=== PATIENT | male | born 1990 | race Caucasian/White ===

== ENCOUNTER 2017-07-03 05:17 | Inpatient (IN) | payer MEDICAID, OTHER ==
[2017-07-03] MEDS ORDERED: MAG HYDROX/AL HYDROX/SIMETH 30 ML CUP PO PRN (06:23)
[2017-07-03] MEDS ORDERED: ZIPRASIDONE 20 MG VIAL IM PRN (06:23)
[2017-07-03] MEDS ORDERED: LORazepam 1 MG TAB PO PRN (06:23)
[2017-07-03] MEDS ORDERED: ACETAMINOPHEN TAB 325 MG TAB PO PRN (06:23)
[2017-07-03] MEDS ORDERED: MAGNESIUM HYDROXIDE 2,400 MG/10 ML CUP PO PRN (06:23)
[2017-07-03] MEDS: NICOTINE 21MG/24HR PATCH TRANSDERM SCH (08:59)
--- NOTE | 2017-07-03 09:03 | P.MDCNMH ---
History of Present Illness H&P Date: 07/03/17 Chief Complaint: Suicidal ideation 27-year-old male who was transferred from [facility] for evaluation and treatment of suicidal ideation. He told the ER physician over at [place] that he could not deal with his life anymore. He denied having any homicidal ideation currently but his petition clearly states that he did have ''evil'' thoughts about hurting others. No visual or auditory hallucinations. According to the ER records he is tired from seeing people succeed around him and he is unable to succeed or find a job. Patient feels depressed and reported a history of being bipolar. He denied having any recent illness, no pain, no shortness of breath, no fevers or chills. He was quite irritable at the time of the interview and it was not easy to get much information from him. Review of Systems 12 point review of system was performed, negative except for HPI Past Medical History Past Medical History: No Reported History Past Surgical History: Tonsillectomy Past Psychological History: Bipolar, Depression Smoking Status: Current every day smoker Past Alcohol Use History: None Reported (Quit drinking about a month ago, he used to drink 6-8 beers a day before that) Past Drug Use History: None Reported Medications and Allergies Home Medications Medication Instructions Recorded Confirmed Type No Known Home Medications [No 07/03/17 07/03/17 History Known Home Medications] Allergies Allergy/AdvReac Type Severity Reaction Status Date / Time No Known Allergies Allergy Verified 07/03/17 06:23 Physical Exam Vitals: Vital Signs Temp Pulse Resp BP 07/03/17 05:55 97.4 F L 88 16 142/85 Intake and Output 07/02/17 07/03/17 07/03/17 22:59 06:59 14:59 Other: Weight 80.876 kg Constitutional: No acute distress, conversant, pleasant Eyes:Anicteric sclerae, moist conjunctiva, no lid-lag, PERRLA, ENMT: Oropharynx clear, no erythema, exudates Neck: Supple, FROM, no masses, or JVD, No carotid bruits, No thyromegaly Lungs: Clear to auscultation, Clear to percussion, Normal respiratory effort, no accessory muscle use Cardiovascular: Heart regular in rate and rhythm, No murmurs, gallops, or rubs, No peripheral edema Abdominal: Soft, Nontender, no guarding, rebound or rigidity, Normoactive bowel sounds, No hepatomegaly, No splenomegaly, No palpable mass Skin: Normal temperature, tone, texture, turgor, no induration, No subcutaneous nodules, No rash, lesions, No ulcers Extremities: No digital cyanosis, No clubbing, Pedal pulses intact and symmetrical, Radial pulses intact and symmetrical, No calf tenderness Psychiatric: Alert and oriented to person, place and time Neuro: Muscles Strength 5/5 in all 4 extremities, Sensation to light touch grossly present throughout, Cranial nerves II-XII grossly intact, no focal sensory deficits Cranial Nerve Examination - Cranial Nerves Cranial Nerve II- Optic: Intact Cranial Nerve III- Oculomotor: Intact Cranial Nerve IV- Trochlear: Intact Cranial Nerve V- Trigeminal: Intact Cranial Nerve - Abducens: Intact Cranial Nerve VII- Facial: Intact Cranial Nerve VIII- Auditory: Intact Cranial Nerve IX- Glossopharyngeal: Intact Cranial Nerve X- Vagus: Intact Cranial Nerve XI- Accessory: Intact Cranial Nerve XII- Hypoglossal: Intact Assessment and Plan Plan: #1 Suicidal ideation: Management per psychiatry CBC, CMP, urinalysis and urine toxicology screen from the outside hospital were all reviewed #2 Questionable hypertension: She has been hungry at times and crying at times and that could elevate the blood pressure Blood pressure was 166/108 at the outside hospital and here when he arrived to the unit it was 142/85. We'll need to recheck a blood pressure once the patient is calm No need to restart antihypertensive meds at this point until the diagnosis verified
[2017-07-03 11:08] LABS: ALT 45 U/L (21-72); AST 24 U/L (17-59); Alkaline Phosphatase 54 U/L (38-126); Anion Gap 12 mmol/L; Blood Urea Nitrogen 14 mg/dL (9-20); Calcium 9.9 mg/dL (8.4-10.2); Carbon Dioxide 28 mmol/L (22-30); Chloride 102 mmol/L (98-107); Cholesterol 149 mg/dL (<200); Glucose 113 mg/dL (74-99); HDL Cholesterol 44 mg/dL (40-60); LDL Cholesterol,Calculated 74 mg/dL (0-99); Potassium 4.3 mmol/L (3.5-5.1); Sodium 142 mmol/L (137-145); Total Bilirubin 0.4 mg/dL (0.2-1.3); Total Protein 7.6 g/dL (6.3-8.2); Triglycerides 154 mg/dL (<150)
--- NOTE | 2017-07-03 13:13 | XR ---
EXAMINATION TYPE: XR foot complete LT , 3 VIEWS DATE OF EXAM ORDERED: 07/03/2017 HISTORY: Lateral foot pain. COMPARISON: None. FINDINGS: No fracture, dislocation or other acute osseous lesion is seen. IMPRESSION: NORMAL LEFT FOOT.
[2017-07-03] MEDS: OLANZapine 5 MG TAB PO SCH ×2 (16:18→20:03)
[2017-07-03] MEDS: cloNIDine HCL 0.1 MG TAB PO SCH ×2 (16:18→20:03)
[2017-07-03 18:30] LABS: Hemoglobin A1C 5.3 % (4.0-6.0)
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
[2017-07-04 06:45] VITALS: RESP 16
[2017-07-04] MEDS: NICOTINE 21MG/24HR PATCH TRANSDERM SCH (08:37)
[2017-07-04] MEDS: cloNIDine HCL 0.1 MG TAB PO SCH ×2 (08:37→22:01)
[2017-07-04] MEDS: OLANZapine 5 MG TAB PO SCH ×2 (08:37→16:43)
[2017-07-04] MEDS: OLANZapine 2.5 MG TAB PO SCH (22:01)
--- NOTE | 2017-07-05 06:12 | PN ---
PROGRESS NOTE DATE OF SERVICE: 07/04/2017 CHIEF COMPLAINT: The patient was depressed. He was making suicide statements that "I cannot deal with life anymore." He was petitioned for involuntary hospitalization. INTERVAL HISTORY: Patient has been doing fair. He had a quiet evening last night. He said he slept a little bit better. He feels that overall he has a somewhat better outlook. He has some insight about the need to focus on withdrawal issues relating to his drinking, even though he cut down considerably over the last several months, he still has been drinking significant amount of alcohol at least on an every other day basis. He was able to talk some about discharge planning. He may be planning to move in with his girlfriend. He was willing to have her come in for a family meeting as part of treatment and discharge planning. He has not had change in his general health. He tolerates his psychotropic medications. MENTAL STATUS: Patient gave fair eye contact. Psychomotor activity was slowed. Speech was monotone. He answered questions with brief responses. His thoughts were clear. His affect was flat. His mood reserved. He was somewhat distressed. ASSESSMENT: I will continue the current diagnosis and treatment plan. I will continue psychotropic medications the same. We will continue to work on discharge planning and anticipate a family meeting tomorrow. We will aim to work on stabilization and discharge planning. BRAD / MCKINLEY: [id number] /
[2017-07-05] MEDS: NICOTINE 21MG/24HR PATCH TRANSDERM SCH (08:44)
[2017-07-05] MEDS: OLANZapine 2.5 MG TAB PO SCH (08:44)
[2017-07-05] MEDS: cloNIDine HCL 0.1 MG TAB PO SCH ×2 (08:44→21:11)
[2017-07-05] MEDS: OLANZapine 5 MG TAB PO SCH ×2 (17:05→21:12)
[2017-07-05] MEDS: NICOTINE POLACRILEX 2 MG GUM BUCCAL PRN ×2 (17:06→21:28)
--- NOTE | 2017-07-05 21:03 | PN ---
PROGRESS NOTE DATE OF SERVICE: 07/05/2017 CHIEF COMPLAINT: The patient was depressed. He was making suicide statements that "I cannot deal with life anymore." He was petitioned for involuntary hospitalization. INTERVAL HISTORY: Patient has been doing fair. He had a quiet evening last night. He slept well. Today he has been up and about. He comes out to groups. His mood still tends to be down. He does not feel that he has seen much progress in his overall mood and outlook. It is noteworthy that we had a family meeting with the patient and his girlfriend. His girlfriend indicated that she had a visit on Tuesday, and between then and now she believes that he has shown a fair amount of progress. It is noteworthy that both of them identify stress issues in their relationship. The patient does complain that his girlfriend can get intense and angry at things. Her view of it would be that she reacts to a lot of negative things that come from him. She is and says that that has to be her major focus. It is noteworthy that the two of them were able to have a reasonable discussion about some discharge planning issues, which was a positive, and it also seems to be a positive that the patient has a future orientation and has some direction in his life, particularly related to music. He has not had change in his general health. He tolerates his psychotropic medications. MENTAL STATUS: Patient gave fair eye contact. He was a little restless. He answered questions with direct responses. He was spontaneous and interactive. His affect was blunted. He had quite a reserved manner. It is difficult to say how distressed he might be feeling. ASSESSMENT: I will continue the current diagnosis and treatment plan. I will continue psychotropic medications the same. I had an extensive discussion with the patient regarding withdrawal issues, including alcohol withdrawal as well as marijuana withdrawal. Patient acknowledged that he has been smoking marijuana on a daily basis. He has limited insight at best about the downside to ongoing marijuana use as it relates to dealing with his mood issues and addressing his relationship issues. I indicated to the patient that it would be absolutely critical for him to stop alcohol and marijuana altogether and that then it would take at least 6 weeks to get through just some of the early phase of withdrawal. I discussed with the patient and his girlfriend that through the early course of withdrawal he may have a lot of irritability and emotional struggles, and that I would relate most all of that simply to withdrawal, and that the main way to get through that is to be supportive and not judgemental, that the patient would need to get involved in a therapeutic activity program such as the walking program we have talked about. The patient and girlfriend do have plans that he may be able to move into town and live with her temporarily in her situation until they get an apartment. It is noteworthy the patient's girlfriend was very clear that he could not drink and would need to get a job as part of the only way the relationship is likely to be successful. We will continue to work on some discharge planning and, if all goes well, I would aim to discharge the patient tomorrow. BRAD / MCKINLEY: [id number] /
[2017-07-06 06:39] VITALS: BP 101/71; PULSE 68; TEMP 97.4
[2017-07-06] MEDS: cloNIDine HCL 0.1 MG TAB PO SCH (08:50)
[2017-07-06] MEDS: OLANZapine 5 MG TAB PO SCH ×2 (08:50→15:43)
[2017-07-06] MEDS: NICOTINE POLACRILEX 2 MG GUM BUCCAL PRN ×3 (08:51→15:43)
--- NOTE | 2017-07-06 17:07 | DS ---
DISCHARGE SUMMARY DATE OF SERVICE: 07/06/2017 DATE OF ADMISSION: 07/03/2017. DATE OF DISCHARGE: 07/06/2017. ADMISSION AND DISCHARGE DIAGNOSIS: 1. Major depression, severe, without psychotic features. 2. Alcohol dependence in early acute withdrawal. 3. Marijuana dependence. HISTORY OF PRESENT ILLNESS: The patient is a 27-year-old male. He was depressed. He presented to the emergency room stating that he felt he could not deal with life anymore. He was petitioned for involuntary hospitalization. He has not had a prior psychiatric hospitalization. About 3 years ago he had taken a very low dose of his girlfriend's Adderall approximately 2.5 mg daily for a brief period of time. Other than that, he had not been on any psychotropic medications. He has had not had any other mental health intervention. He was making statements that he had "evil thoughts about hurting others." He talked about seeing himself as a failure. He was in a relationship and has a 5-year-old child. He does have visitation court ordered. However, the mother was refusing to cooperate. He said he had been to the courts on a number of occasions to try to get visitation though was blocked by the courts that was causing him a lot of distress. He said he got to the point where he just gave up on that. He had been drinking beer on a regular basis up until last summer. He started making an effort to cut back and was down to drinking a 6 pack about every other day. He was drinking at that pace up until his admission. He had struggles in his growing up. He had a very unstable family situation. He had flashbacks to early life experiences that were quite traumatic. Sleep was fair. He had vague symptoms of depression, though he presented more as a anger than anything else. He was not on any psychotropic medications at the time of admission. PAST MEDICAL HISTORY AND PHYSICAL EXAM: As per Dr. Frank. MENTAL STATUS EXAM: The patient was restless. He gave fair eye contact. He answered questions with brief responses. His affect was intense. He had angry manner. His mood was depressed. He was significantly distressed. Cognitive exam was clear. COURSE OF HOSPITALIZATION: Patient was admitted for comprehensive medical psychiatric and psychosocial evaluation. We engaged the patient in individual and group therapeutic activities. I had an extensive discussion with the patient regarding what would be the critical focus of treatment, namely early acute alcohol and marijuana withdrawal. The patient did indicate that he wished to be free of alcohol. He was started on Zyprexa 5 mg 3 times a day. The aim of Zyprexa was to help reduce physiologic stress response as it related to alcohol withdrawal as well as PTSD symptoms. In addition the patient was started on Catapres 0.1 mg twice a day. The aim was to help manage early withdrawal issues. Throughout his hospitalization he maintained fairly good vital signs. His blood pressures were initially high with the highest being 141/104. The pressures came down to the normal range. The patient initially was fairly withdrawn and somewhat angry in his manner. It is noted that he started attending groups. He seemed to do fairly well with groups. He spent time talking about his interest in music. 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 He said he had some interest in pursuing that as a profession, though recognized that it can be a very demanding field and that many people involved in it, which makes it harder for any start up to have success. He does say he might be interested in higher education in the direction of music production. As his hospitalization progressed, the patient's mood improved. We had a family meeting with the patient and his girlfriend. The girlfriend is . One issue for the patient that had been significant is that he was living with his [place]. From that standpoint, it made it hard for him to do anything as he did not have transportation. He felt very isolated and that seemed to add to some of his anxiety and distress. He and his girlfriend did have the plan to live together as far. As the discharge plan he was going to be moving temporarily with his girlfriend who lives with her aunt. It is noteworthy that in the family meeting, they were able to address some tension that they have in the relationship. One issue from the girlfriend's standpoint is that the patient needed to be free of alcohol altogether and also to get a job. Otherwise, she would find it very difficult to be comfortable in that relationship. The patient himself seemed motivated for that. The patient was able to raise concerns about how he feels his girlfriend may react to him in different negative ways. We talked about the issue that in early withdrawal which is going to be the first 6 weeks of withdrawal at least, more significant issues as far as in the emotional issues and relationship problems may need to be put on hold as the patient is likely to have irritability and mood swings just based on withdrawal and it may be hard to say what his outlook would be once he is beyond 6 to 8 weeks of withdrawal. I strongly encouraged the patient to move towards abstinence, both from alcohol as well as marijuana. The patient did seem to gain some insight regarding some of his interpersonal issues. CONDITION AT DISCHARGE: Patient was stable. His mood was improved. He tolerated his medications well. RECOMMENDATIONS AND FOLLOWUP: Patient is discharged to home. DISCHARGE MEDICATIONS: Zyprexa 5 mg 3 times a day. Catapres 0.1 mg twice a day and Nicorette gum 2 mg q.4 hours p.r.n. He will be living with his girlfriend. He has a followup appointment at [facility] in one week. BRAD / MCKINLEY: [id number] /
== END 2017-07-06 16:45 | disposition home or self-care (01) | DRG 885 ==
LOC: 3MHU 05:37
PROVIDERS: ADMIT Psychiatry & Neurology Psychiatry; ATTEND Psychiatry & Neurology Psychiatry
DX: F32.2 Major depressive disorder, single episode, severe without psychotic features (principal); R45.851 Suicidal ideations; F10.239 Alcohol dependence with withdrawal, unspecified; F43.10 Post-traumatic stress disorder, unspecified; Z62.811 Personal history of psychological abuse in childhood; F12.288 Cannabis dependence with other cannabis-induced disorder; R45.4 Irritability and anger; F17.200 Nicotine dependence, unspecified, uncomplicated
CPT/HCPCS: 80053; 80061; 83036; 84443